=== PATIENT | female | born 1965 | race Caucasian/White ===

== ENCOUNTER 2016-09-27 11:16 | Emergency (ER) | payer MEDICARE | END 2016-09-27 13:03 | disposition home or self-care (01) | LOC: ER 11:16 | DX: S67.22XA Crushing injury of left hand, initial encounter (principal); F17.210 Nicotine dependence, cigarettes, uncomplicated; Z90.49 Acquired absence of other specified parts of digestive tract; Z88.0 Allergy status to penicillin; Z88.5 Allergy status to narcotic agent; W23.0XXA Caught, crushed, jammed, or pinched between moving objects, initial encounter ==